=== PATIENT | male | born 1980 | race Caucasian/White ===

== ENCOUNTER 2017-02-05 01:58 | Observation (INO) | payer OTHER, BC ==
[~2017-02-05] VITALS: Ht 182.9 cm; Wt 80.0 kg
[2017-02-05 02:02] VITALS: BP 146/95; PULSE 104; RESP 16; TEMP 97.8; O2SAT 98
[2017-02-05] MEDS ORDERED: SODIUM CHLOR 0.9% 1000 ML INJ 1,000 ML IV SCH (02:17)
[2017-02-05] MEDS ORDERED: DIPHTH/TETANUS/ACEL PERTUSSIS (BOOSTER) 0.5 ML VIAL/PFS IM ONE (02:30)
[2017-02-05] MEDS ORDERED: ceFAZolin 2 GM PREMIX 50 ML IV ONE (02:30)
[2017-02-05 02:38] LABS: BASOPHIL % 0.2 % (0.0-2.0); EOSINOPHIL # 0.1 TH/MM3 (0-0.4); EOSINOPHIL % 0.4 % (0.0-4.0); HEMO FLAGS DIFF FINAL; LYMPH % 8.2 % (9.0-44.0); LYMPHOCYTE # 1.8 TH/MM3 (1.0-4.8); MEAN CELL VOLUME 92.3 FL (80.0-100.0); MEAN CORPUSCULAR HEMOGLOBIN 31.2 PG (27.0-34.0); MEAN CORPUSCULAR HGB CONC 33.8 % (32.0-36.0); MONO % 5.7 % (0.0-8.0); NEUT % 85.5 % (16.0-70.0); PLATELET COUNT 295 TH/MM3 (150-450); RED BLOOD COUNT 4.88 MIL/MM3 (4.50-5.90); RED CELL DISTRIBUTION WIDTH 13.8 % (11.6-17.2); WHITE BLOOD COUNT 22.2 TH/MM3 (4.0-11.0)
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
[2017-02-05 02:54] LABS: APTT (PATIENT) 21.2 SEC (24.3-30.1); INTERNATIONAL NORMALIZED RATIO 0.9 RATIO
[2017-02-05 03:06] LABS: ALKALINE PHOSPHATASE 83 U/L (45-117); ALT (GPT) 33 U/L (12-78); TOTAL BILIRUBIN ADULT 0.3 MG/DL (0.2-1.0)
[2017-02-05 03:16] LABS: ANION GAP 8 MEQ/L (5-15); AST (GOT) 40 U/L (15-37); BICARBONATE 31.5 MEQ/L (21.0-32.0); BLOOD UREA NITROGEN 10 MG/DL (7-18); CHLORIDE 102 MEQ/L (98-107); GLOMERULAR FILTRATION RATE 74 ML/MIN (>89); SODIUM (NA) 141 MEQ/L (136-145)
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
[2017-02-05 03:18] LABS: ALCOHOL 127 MG/DL (0-5); POTASSIUM 3.7 MEQ/L (3.5-5.1)
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
[2017-02-05 04:26] VITALS: BP 143/70
[2017-02-05 04:49] LABS: BLOOD, URINE NEG (NEG); COMMENT (UR) CULT NOT INDICATED; CULTURE IF INDICATED CULT NOT INDICATED; GLUCOSE,URINE NEG (NEG); KETONE, URINE NEG (NEG); MUCUS URINE FEW /lpf (OCC); NITRITE,URINE NEG (NEG); PH, URINE 6.5 (5.0-8.5); URINE COLOR LIGHT-YELLOW (YELLW/STRAW)
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
[2017-02-05] MEDS ORDERED: KETOROLAC TROMETHAMINE 30 MG/ML (IVP) VIAL IV PUSH ONE (05:00)
[2017-02-05 06:21] VITALS: BP 147/87; PULSE 117; RESP 18; TEMP 97.5; O2SAT 96
[2017-02-05] MEDS ORDERED: SODIUM CHLORIDE 0.9% FLUSH 10 ML FLUSH IV FLUSH PRN (07:00)
[2017-02-05] MEDS ORDERED: ENALAPRILAT 1.25 MG/ML VIAL IV PUSH PRN (07:00)
[2017-02-05] MEDS ORDERED: ACETAMINOPHEN/HYDROcodone 325 MG/5 MG TAB PO PRN (07:00)
[2017-02-05] MEDS ORDERED: LACTULOSE SYRUP 20 GM/30 ML CUP PO PRN (07:00)
[2017-02-05] MEDS ORDERED: MORPHINE SULFATE 4 MG/ML INJ IV PUSH PRN (07:00)
[2017-02-05] MEDS ORDERED: ONDANSETRON HCL 4 MG/2 ML VIAL IV PUSH PRN (07:00)
[2017-02-05] MEDS ORDERED: PANTOPRAZOLE SODIUM 40 MG VIAL IVP SCH (08:00)
[2017-02-05 08:08] VITALS: BP 153/93; PULSE 115; RESP 20; TEMP 99.1; O2SAT 97
[2017-02-05] MEDS ORDERED: BACITRACIN TOP OINT 15 GM TUBE TOP SCH (09:00)
[2017-02-05] MEDS ORDERED: DOCUSATE SODIUM 50 MG/SENNA 8.6 MG TAB PO SCH (09:00)
[2017-02-05 11:51] VITALS: BP 144/93; PULSE 105; RESP 16; TEMP 98.6; O2SAT 98
[2017-02-05] MEDS: ACETAMINOPHEN/HYDROcodone 325 MG/5 MG TAB PO PRN ×2 (11:55→15:20)
[2017-02-05 12:19] LABS: CKMB 13.3 NG/ML (0.5-3.6)
[2017-02-05] MEDS ORDERED: HYDR-3516 PO (12:46)
[2017-02-05] MEDS ORDERED: SENN1TAB PO (12:46)
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
[2017-02-05 15:51] VITALS: BP 124/82; PULSE 102; RESP 18; TEMP 98.2; O2SAT 98
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
--- NOTE | 2017-02-05 22:03 | EKG ---
Date Performed: 02/05/2017 Time Performed: 02:07:00 PTAGE: 36 years EKG: SINUS TACHYCARDIA NONSPECIFIC T-WAVE ABNORMALITY ABNORMAL RHYTHM ECG NO PREVIOUS TRACING DOCTOR: Kait Cat Interpretating Date/Time 02/05/2017 22:03:31
== END 2017-02-05 18:49 | disposition home or self-care (01) ==
LOC: NEPE 01:58 → NEDA 05:08 → NEPGCP 06:12
PROVIDERS: ADMIT Surgery; ATTEND Surgery
DX: S82.832A Other fracture of upper and lower end of left fibula, initial encounter for closed fracture (principal); V48.5XXA Car driver injured in noncollision transport accident in traffic accident, initial encounter; W23.0XXA Caught, crushed, jammed, or pinched between moving objects, initial encounter; Y92.410 Unspecified street and highway as the place of occurrence of the external cause; R00.0 Tachycardia, unspecified; Z23 Encounter for immunization
CPT/HCPCS: 70450; 71010; 72125; 72170; 73552; 73590; 73700; 80053; 80307; 81001; 82550; 82552; 85025; 85384; 85610; 85730; 90471; 90715; 93005; 94150; 96361; 96365; 96375; 96376; 99285; C9113; G0378; J0690; J1885; J7030; L1830; L2114

== ENCOUNTER → 2017-02-21 | Day surgery (SDC) | payer BC ==
[~2017-02-21] VITALS: Ht 180.3 cm; Wt 82.0 kg
[~2017-02-21] MED LIST: CHLORHEXIDINE GLUCONATE 2 % 1 PACK (2 CLOTHS) TOPICAL PRN; DEXAMETHASONE SOD PHOS 4 MG/ML VIAL IV ONE; DO NOT ADM ANY ANTICOAGULANT DRUGS PRN; HYDR-3516 PO; INSULIN HUMAN REGULAR 1,000 UNITS/10 ML VIAL SQ PRN; LACTATED RINGER'S 1000 ML IV PRN; LIDOCAINE HCL 1% PF 5 ML AMPULE OTHER ONE; METOPROLOL TARTRATE 25 MG TAB PO PRN; MIDAZOLAM HCL 2 MG/2 ML VIAL IV ONE; MORPHINE SULFATE 4 MG/ML INJ IV ONE; ONDANSETRON HCL 4 MG/2 ML VIAL IV PUSH ONE; POVIDONE IODINE 5% (ANTISEPSIS KIT) 4 APPLICATIONS EACH NARE PRN; PROPOFOL 200 MG/20 ML AMP IV ONE; SENN1TAB PO; SODIUM CHLORID 0.9% 500 ML IV PRN; STERILE WATER FOR INJECTION 20 ML VIAL IV ONE; ceFAZolin 2 GM PREMIX 50 ML IV ONE; ceFAZolin INJ 1,000 MG VIAL IV ONE
[2017-02-21 12:21] LABS: BASOPHIL # 0.1 TH/MM3 (0-0.2); BASOPHIL % 0.7 % (0.0-2.0); EOSINOPHIL # 0.2 TH/MM3 (0-0.4); HEMATOCRIT 44.2 % (39.0-51.0); HEMO FLAGS DIFF FINAL; LYMPHOCYTE # 1.6 TH/MM3 (1.0-4.8); MEAN CELL VOLUME 91.6 FL (80.0-100.0); MEAN CORPUSCULAR HEMOGLOBIN 31.2 PG (27.0-34.0); MONO % 8.9 % (0.0-8.0); NEUT % 69.4 % (16.0-70.0); PLATELET COUNT 329 TH/MM3 (150-450); RED BLOOD COUNT 4.82 MIL/MM3 (4.50-5.90); RED CELL DISTRIBUTION WIDTH 13.4 % (11.6-17.2); WHITE BLOOD COUNT 8.6 TH/MM3 (4.0-11.0)
[2017-02-21 12:33] LABS: BICARBONATE 28.4 MEQ/L (21.0-32.0); POTASSIUM 3.8 MEQ/L (3.5-5.1)
[2017-02-21 17:04] VITALS: BP 138/82; PULSE 88; RESP 16; TEMP 97.8; O2SAT 99
--- NOTE | 2017-03-06 17:09 | MP ---
cc: WILY CASTRO MD DATE OF SURGERY 03/05/2017 PREOPERATIVE DIAGNOSIS Retained hematoma of the left thigh. POSTOPERATIVE DIAGNOSIS Retained hematoma of the left thigh. PROCEDURE Drainage of the hematoma of the left thigh. SURGEON Dr. Castro ANESTHESIA General. ESTIMATED BLOOD LOSS 10 cc. DETAILS OF PROCEDURE The patient prepped and draped in the usual fashion. Small incision made in lower portion of the hematoma and about 300 mL of serosanguineous fluid drained. A [place] drain is now placed in the incision, sutured in place with 3-0 nylon and then dressing applied. The patient tolerated the procedure well. Wily Castro SJ/KK /3:44 PM /5:06 PM
== END | disposition home or self-care (01) ==
LOC: HSDC 11:00
PROVIDERS: ATTEND Surgery
DX: L76.32 Postprocedural hematoma of skin and subcutaneous tissue following other procedure (principal)
CPT/HCPCS: 00400; 10140; 80048; 85025; 87015; 87070; 87102; 87116; 87205; 87206; J0690; J1100; J2250; J2270; J2405; J3010; J7120